=== PATIENT | male | born 1990 | race Hispanic/Latino ===

== ENCOUNTER 2023-11-16 11:42 | Emergency (ER) | payer OTHER ==
[~2023-11-16] VITALS: Ht 167.6 cm; Wt 65.8 kg
[2023-11-16 11:49] VITALS: BP 148/75; PULSE 69; RESP 16; O2SAT 99
[2023-11-16] MEDS ORDERED: CEFAZOLIN SODIUM 2 GM VIAL IVPB SCH (13:00)
[2023-11-16] MEDS ORDERED: TETANUS/DIPHTHERIA TOXOID [ADULT] 0.5 ML VIAL IM ONE (13:00)
[2023-11-16] MEDS ORDERED: CEFAZOLIN SODIUM 2 GM VIAL IJ SCH (13:30)
[2023-11-16] MEDS ORDERED: BACITRACIN 1 EACH PACKET TP ONE (17:00)
== END 2023-11-16 16:45 | disposition home or self-care (01) ==
LOC: EDH 11:42
DX: S41.112A Laceration without foreign body of left upper arm, initial encounter (principal); X58.XXXA Exposure to other specified factors, initial encounter; Y93.89 Activity, other specified; Y92.89 Other specified places as the place of occurrence of the external cause; Y99.8 Other external cause status
CPT/HCPCS: 99283; 90714; 73030; 90471; 12002; J0690